=== PATIENT | female | born 1955 | race Caucasian/White ===

== ENCOUNTER → 2020-05-25 | Outpatient (CLI) | payer OTHER ==
[~2020-05-25] MED LIST: FLUO10CA13 PO; HYDR-3246 PO; LEVO200T42 PO; LIOT5TAB11 PO; TRAZ-175 PO
== END | disposition home or self-care (01) ==
LOC: CVU 06:52
PROVIDERS: ATTEND Internal Medicine Cardiovascular Disease
DX: I34.0 Nonrheumatic mitral (valve) insufficiency (principal); R06.02 Shortness of breath; R07.89 Other chest pain
CPT/HCPCS: 93306; 93356